=== PATIENT | female | born 1985 | race Caucasian/White ===

== ENCOUNTER 2016-12-02 10:52 | Day surgery (SDC) | payer OTHER ==
[~2016-12-02] VITALS: Ht 175.3 cm; Wt 86.4 kg
[~2016-12-02 10:52] MED LIST: ENDOCET 5-3251 EACH PO; MOTRIN800 MG PO; NATALCARE RX1 TABLE1 PO; [UNRECOGNIZED DRUG - OTHER] PO
[2016-12-02 11:33] VITALS: BP 126/79
[2016-12-02 15:38] VITALS: BP 120/82
[2016-12-02 16:07] VITALS: BP 117/71
== END 2016-12-02 16:15 | disposition home or self-care (01) ==
LOC: SDC 10:52
DX: S66.812A Strain of other specified muscles, fascia and tendons at wrist and hand level, left hand, initial encounter (principal); M67.432 Ganglion, left wrist; Z82.49 Family history of ischemic heart disease and other diseases of the circulatory system
CPT/HCPCS: J0131; J0690; J1100; J1170; J1885; J2250; J2405; J2550; J3010; S0020